=== PATIENT | male | born 1990 | race Caucasian/White ===

== ENCOUNTER → 2016-12-15 | Outpatient (CLI) | payer OTHER ==
--- NOTE | ~2016-12-15 | ST ---
Unit #: [id number] #: [id number] Patient: HERNAN VALENZUELA [id number] [address] [address] [id number] O MR#: [id number] NAME: HERNAN VALENZUELA : 1990 SEX: M STUDY DATE/TIME: 12/15/2016 UNIT: [facility] ROOM: STUDY DESCRIPTION: Stress Test Attending Physician: Mariah Be M.D. Referring Physician: Mariah Be M.D. Primary Care Physician: Mariah Be M.D. CARDIOLOGY REPORT REASON FOR TEST Chest pain. DESCRIPTION The patient exercised on the treadmill according to Donny protocol for a total of 14 minutes 55 seconds achieving 17.20 METs with resting heart rate of 59 beats per minute and a peak heart rate of 176 beats per minute, representing 91% of the maximum predicted heart rate. Baseline EKG is sinus bradycardia, rate of 59 beats per minute. The patient denied any symptoms of chest pain, shortness of breath or exertional fatigue during the testing period. There were no ST segment changes noted suggestive of ischemia. There was no ectopy. The test was stopped secondary to target heart rate achieved. IMPRESSION 1. Negative EKG portion of exercise Cardiolite stress test. 2. No ST segment changes noted suggestive of ischemia. 3. No chest pain, shortness of breath or exertional fatigue. 4. Please correlate with nuclear imaging. Dictated by... Amena Akhtar A.P.R.N. for Mariah Be M.D. LMW/df TD: 12/15/2016 11:22 JOB #: [id number] Unit #: [id number] #: [id number] Patient: HERNAN VALENZUELA CARDIOLOGY REPORT Page 1 of 1 X Amena Akhtar APRN CARDIOLOGY REPORT
--- NOTE | ~2016-12-15 | TH ---
Unit #: [id number] #: [id number] Patient: HERNAN VALENZUELA [id number] [address] [address] [id number] O MR#: [id number] NAME: HERNAN VALENZUELA : 1990 SEX: M STUDY DATE/TIME: 12/15/2016 UNIT: [facility] ROOM: STUDY DESCRIPTION: Attending Physician: Mariah Be M.D. Referring Physician: Mariah Be M.D. Primary Care Physician: Mariah Be M.D. CARDIOLOGY REPORT EXAM Exercise Cardiolite stress test, nuclear portion. PROCEDURE Using technetium 99m labeled Cardiolite, rest and stress SPECT images were obtained. Multiple SPECT images were obtained in various views including horizontal and vertical long axis and short axis views of the left ventricle. Images were obtained by gated SPECT method. The patient was administered 10.76 mCi of Cardiolite at rest. The patient was administered 33.3 mCi of Cardiolite at peak exercise. Total exercise time is 14 minutes and 55 seconds. On the stress images, there is normal perfusion noted. The rest images showed normal perfusion. Comparing rest and stress images, there is no stress-induced ischemia noted. The left ventricular ejection fraction is calculated to be 57%. There is no focal wall motion abnormality seen. CONCLUSION 1. No stress-induced ischemia noted. 2. The left ventricular ejection fraction is calculated to be 57%. 3. There is no focal wall motion abnormality seen. 4. Normal exercise Cardiolite stress test. Dictated by... Arnold Izaguirre TD: 12/15/2016 12:56 JOB #: [id number] CARDIOLOGY REPORT Page 1 of 1 X Mariah Be MD <ELECTRONICALLY SIGNED> 03/28/17 1429 CARDIOLOGY REPORT
== END | disposition home or self-care (01) ==
LOC: CNUC 07:53
DX: R07.9 Chest pain, unspecified (principal); R00.1 Bradycardia, unspecified
CPT/HCPCS: 78452; 93017; A9500